=== PATIENT | female | born 1950 | race Asian ===

== ENCOUNTER 2019-03-27 05:32 | Day surgery (SDC) | payer MEDICARE ==
[2019-03-27] VITALS (15 sets, daily range): BP systolic 118–139; BP diastolic 66–75; PULSE 70–88; RESP 10–18; Ht 162.6 cm; Wt 56.4 kg
[~2019-03-27] VITALS: Ht 162.6 cm; Wt 56.4 kg
[2019-03-27] MEDS ORDERED: AMLO2.5T78 PO (06:43)
[2019-03-27] MEDS ORDERED: LEVO50TA7 PO (06:43)
[2019-03-27] MEDS ORDERED: ATOR20TA38 PO (06:43)
[2019-03-27] MEDS ORDERED: ASPI-903 PO (06:49)
--- NOTE | 2019-03-27 06:51 | PREAC ---
Date/Time of Note Date/Time of Note DATE: 03/27/19 TIME: 06:50 Anesthesia Eval and Record Evaluation Time Pre-Procedure Interview DATE: 03/27/19 TIME: 06:50 Age 68 Sex female NPO: 8 hrs Preoperative diagnosis Left Ankle DJD Planned procedure Left Ankle Arthroscopy and Arthrodesis Past Medical History Past Medical History: Includes Cardio: HTN, Dyslipidemia Endo: Hypothyroid Musculoskeletal: Osteoarthritis Surgery & Anesthesia Issues No known issue Meds Anticoagulation: No Beta Lalo within 24 hr: No Reason Beta Lalo not given: Pt. not on B-Lalo Reported Medications Aspirin* (Aspirin* Chew) 81 Mg Tab.chew, 81 MG PO DAILY, TAB.CHEW 03/27/19 Atorvastatin Calcium* (Atorvastatin Calcium*) 20 Mg Tablet, 10 MG PO QHS, #30 TAB 03/27/19 Amlodipine Besylate* (Amlodipine Besylate*) 2.5 Mg Tablet, 2.5 MG PO DAILY, #30 TAB 03/27/19 Levothyroxine Sodium* (Levothyroxine Sodium*) 50 Mcg Tablet, 50 MCG PO BEFORE BREAKFAST, #30 TAB 03/27/19 Meds reviewed: Yes Allergies Coded Allergies: Penicillins (Verified Allergy, Mild, 03/14/19) Allergies Reviewed: Yes Labs/Studies Labs Reviewed: Reviewed by anesthesiologist test: N/A Studies: ECG (n/a), CXR (n/a) Pre-procedure Exam Last vitals Vital Signs Date Temp Pulse Resp B/P (MAP) Pulse Ox O2 O2 Flow FiO2 Time Delivery Rate 03/27/19 97.7 70 18 126/75 97 06:25 (92) Airway: Adequate mouth opening, Adequate thyromental dist Mallampati: Mallampati II Teeth: Normal Lung: Normal Heart: Normal ASA Physical Status ASA physical status: 2 Emergency: None Planned Anesthetic General/MAC: ETT Nerve block: Femoral (left), Sciatic (left) Planned Pain Management Single shot nerve block, Parenteral pain med Pre-operative Attestations Prior to commencing anesthesia and surgery, the patient was re-evaluated, there was verification of: *The patient's identity *The results of appropriate recent lab work and preoperative vital signs *The above evaluation not changing prior to induction *Anesthetic plan, risk benefits, alternative and complications discussed with patient/family; questions answered; patient/family understands, accepts and wishes to proceed. ROZINA MARIE MD Mar 27, 2019 06:51
[2019-03-27] MEDS ORDERED: CEFAZOLIN 1 GM INJ ONE ×2 (06:54→08:59)
[2019-03-27] MEDS ORDERED: PROPOFOL 20 ML ONE (06:54)
[2019-03-27] MEDS ORDERED: ROCURONIUM 50 MG INJ ONE (06:54)
[2019-03-27] MEDS ORDERED: ROPIVACAINE 0.5 % 30 ML VIAL ONE ×2 (06:55→08:11)
[2019-03-27] MEDS ORDERED: ROPIVACAINE 0.2% 20 ML VIAL ONE (06:55)
[2019-03-27] MEDS ORDERED: MIDAZOLAM 1 MG/ML 2 ML INJ ONE (06:55)
--- NOTE | 2019-03-27 07:04 | HPN ---
Date/Time of Note Date/Time of Note DATE: 03/27/19 TIME: 07:04 Interval H&P Admission Note Pt. seen H&P reviewed: No system changes TOMASA BOWMAN MD Mar 27, 2019 07:04
[2019-03-27] MEDS ORDERED: DEXAMETHASONE 4 MG/ML 5 ML INJ ONE (07:45)
[2019-03-27] MEDS ORDERED: METOCLOPRAMIDE 10 MG INJ ONE (07:45)
[2019-03-27] MEDS ORDERED: KETOROLAC 30 MG INJ ONE (07:45)
[2019-03-27] MEDS ORDERED: ONDANSETRON 4 MG INJ ONE (07:45)
[2019-03-27] MEDS ORDERED: POLYMYXIN/BACITRACIN 1L IRRIG ONE (08:11)
[2019-03-27] MEDS ORDERED: POVIDONE IODINE 10% 28.4 GM OINT ONE (08:11)
[2019-03-27] MEDS ORDERED: EPHEDrine 25 MG/5 ML SYG ONE (09:11)
[2019-03-27] MEDS ORDERED: PHENYLephrine (100 MCG/ML) 10ML SYG ONE (09:11)
[2019-03-27] MEDS ORDERED: SUGAMMADEX SODIUM 200 MG/2 ML VIAL IV ONE (10:58)
--- NOTE | 2019-03-27 11:28 | PAC ---
Date/Time of Note Date/Time of Note DATE: 03/27/19 TIME: 11:27 Post-Anesthesia Notes Post-Anesthesia Note Last documented vital signs Vital Signs Date Temp Pulse Resp B/P (MAP) Pulse Ox O2 O2 Flow FiO2 Time Delivery Rate 03/27/19 99.6 70 18 126/75 99 face mask 8 L 11:25 (92) Activity: WNL Respiratory function: WNL Cardiovascular function: WNL Mental status: Baseline Pain reasonably controlled: Yes Hydration appropriate: Yes Nausea/Vomiting absent: Yes ROZINA MARIE MD Mar 27, 2019 11:28
[2019-03-27] MEDS ORDERED: EPHEDrine SULFATE 50 MG/5 ML SYG IV PRN (11:30)
[2019-03-27] MEDS ORDERED: hydrALAzine 20 MG INJ IV PRN (11:30)
[2019-03-27] MEDS ORDERED: METOCLOPRAMIDE 10 MG INJ IV PRN (11:30)
[2019-03-27] MEDS ORDERED: FENTAnyl 50 MCG/ML VIAL IV PRN ×3 (11:30)
[2019-03-27] MEDS ORDERED: MEPERIDINE 25 MG INJ IV PRN (11:30)
[2019-03-27] MEDS ORDERED: DIPHENHYDRAMINE 50 MG INJ IV PRN (11:30)
[2019-03-27] MEDS ORDERED: ONDANSETRON 4 MG INJ IV PRN ×2 (11:30→12:00)
[2019-03-27] MEDS ORDERED: HYDROmorphONE 1 MG/5 ML IV SYRINGE IV PRN ×3 (11:30)
[2019-03-27] MEDS ORDERED: OXYCODONE/ACETAMINOPHEN (5/325) TAB PO PRN ×3 (11:30→12:00)
[2019-03-27] MEDS ORDERED: LABETALOL HCL 20MG INJ IV PRN (11:30)
[2019-03-27] MEDS ORDERED: SOD CHLORIDE 0.9% 1,000 ML IV SCH (11:34)
--- NOTE | 2019-03-27 11:34 | OPPN ---
Date/Time of Note Date/Time of Note DATE: 03/27/19 TIME: 11:33 Operative Report Preoperative Diagnosis left ankle arthritis Postoperative Diagnosis same Operation/Procedure Performed 1. left ankle arthroscopy with extensive debridement 2. Arthroscopic ankle fusion Surgeon see signature line family and divorce legal assistant Altfa Marroquin MD Anesthesia: general Estimated blood loss: minimal Transfusion Required none Specimen none Grafts/Implants none Complications none TOMASA BOWMAN MD Mar 27, 2019 11:34
[2019-03-27] MEDS ORDERED: morphine 2 MG INJ IV PRN (12:00)
--- NOTE | 2019-03-27 14:20 | OPR ---
DATE OF OPERATION: PREOPERATIVE DIAGNOSES: 1. Severe degenerative arthritis of the left ankle with valgus angulation. 2. Large distal tibial osteophytes. 3. Distal tibial cyst. POSTOPERATIVE DIAGNOSES: 1. Severe degenerative arthritis of the left ankle with valgus angulation. 2. Large distal tibial osteophytes. 3. Distal tibial cyst. OPERATIONS PERFORMED: 1. Arthroscopy of left ankle with soft tissue distraction. 2. Extensive debridement of the ankle, removal of all osteophytes, loose bodies and arthritic cartil age. 3. Arthrodesis of the left ankle with two 7.3 AO cannulated screws. 4. Insertion of Ignite and Augment to facilitate fusion. 5. Use of fluoroscopy to verify position and alignment of the guide pins and screws. 6. Short leg cast. Extremely complex difficult procedure because the patient's ankle was deformed, was very narrow, was very difficult to do the procedure because of the tightness of the ankle, large osteophytes and defor mity. Because of this, it necessitated additional 45 minutes of time (22). SURGEON: Tomasa Dyer MD FORMATION FRACTURING OPERATOR: Atlaf Marroquin MD ANESTHESIA: General with popliteal block. TOURNIQUET TIME: 137 minutes. DESCRIPTION OF PROCEDURE: The patient was taken to the operating room and placed in supine position. Satisfactory popliteal block was given. Satisfactory general anesthesia was administered. A 2 gra ms Ancef were given intravenously. The left thigh was secured in the thigh griggs. Arms were carefu lly padded. The left leg was prepped and draped in usual manner. Superficial peroneal nerve was mar ked out. Tourniquet was inflated to 250 mmHg. Soft tissue distraction was applied. Standard ju[place] medial, anterolateral and posterolateral portals were inserted using extreme caution to avoid injurin g neurovascular structures. The patient's ankle was very tight and narrow. She has very large osteo phytes including the front of her ankle. Ankle was so tight that the bur could not be placed in the middle or posterior. All the synovitis and scar tissue were removed from the front with a shaver. T he soft tissue was peeled off the distal tibia. The osteophytes were removed off the distal tibia of f the medial malleolus and off the fibula. The medial and lateral gutters were debrided as was the p osterior gutter. Using different angled curettes and shaver, all articular cartilage was removed fro m the ankle. There was very little cartilage left. It was almost down to bone completely on the tib ia and the talus. Bone was quite sclerotic. After all articular cartilage was removed, a bur was us ed to remove approximately 1 mm of bone from the front to the back of the talus making sure that we g ot through the sclerotic bone. Multiple drill holes were made with 0.062 K-wire on the talus. Multi ple "spot welds" were made to facilitate bleeding and healing. After the talus has been prepared rahel ropriately, the tibia was then prepared in a similar manner removing all articular cartilage and then putting the spot welds in. When we were done, a bur was used to remove about a millimeter of bone t hroughout the distal tibia and then multiple spot welds were placed and drill holes were made in the tibia as well. Good bleeding was obtained. At this point, the Ignite was inserted with Augment into the ankle. Prior to doing that, the Micro Vector was inserted. The medial guide pin was inserted. Lateral guide pin was inserted. We checked these positions in AP and lateral radiographs. It looke d very good. The foot was then reduced so the talus was out of valgus. Foot was placed in 90 degree s of dorsi and plantarflexion. The medial guide pin was advanced. We measured it then partially dri lled and inserted a 7.3 AO cannulated screw. Excellent fixation was obtained. In order to insert th e pins, small incision was made on the medial malleolus. Dissection was carried down to subcutaneous tissue. The saphenous nerve and vein were elevated out of the field. The Micro Vector was inserted for inserting the pin on the lateral side of the ankle. Incision was m nathan through the skin. Dissection was carried down to subcutaneous tissue. Peroneal tendon sheath wa s opened and retracted. The Micro Vector was then inserted with guide pin in appropriate position do rsal, plantar, medial and lateral. Once both screws were noted to be in good position, the lateral s crew was advanced into the talus. We checked in both AP and lateral planes. We verified that the sc rews did not violate the subtalar joint. The tourniquet was released. Bleeders were coagulated. Fi nal fluoroscopic view showed excellent position of the screws in both planes. The deep tissues were closed with 3-0 undyed Vicryl including the peroneal tendon sheath, subcutaneous tissue with 3-0 undy ed Vicryl and the skin with 4-0 black nylon. Saphenous nerve block was done with 0.5% ropivacaine. Compression dressing was applied with short-leg cast in neutral position. At the end of the procedur e, sponge and needle count was correct. The patient tolerated procedure well and the cast was split in the recovery room. Dictated By: TOMASA POLLARD/PAPA Conf#: [id number] DID#: [id number]
--- NOTE | 2019-03-28 | OPR ---
DATE OF OPERATION: 03/27/2019 ADDENDUM [employer] COOK ORTHOPEDIC SURGEON: During the procedure, an assistant counsel orthopedic surgeon was used at my [id number]. The assistant counsel helped with distracting the ankle, manipulating the arthroscope. In addition, most importantly, the assistant counsel helped with inserting the screws while I held the ankle and reduced appropriately. Without a skilled orthopedic surgeon assisting me, this could not be done and should be compensated appropriately. Dictated By: TOMASA BOWMAN MD RF/PAPA Conf#: [id number] DID#: [id number]
== END 2019-03-27 13:35 | disposition home or self-care (01) ==
LOC: SDS 05:32
PROVIDERS: ATTEND Orthopaedic Surgery
DX: M19.072 Primary osteoarthritis, left ankle and foot (principal); M25.772 Osteophyte, left ankle; M85.662 Other cyst of bone, left lower leg; I10 Essential (primary) hypertension; E03.9 Hypothyroidism, unspecified
CPT/HCPCS: 29898; 29899; 71045; 73610; C1713; J0690; J1100; J1885; J2250; J2370; J2405; J2765; J2795; J3010